=== PATIENT | male | born 1985 | race Caucasian/White ===

== ENCOUNTER 2023-10-07 14:05 | Emergency (ER) | payer SELFPAY ==
[2023-10-07] VITALS (8 sets, daily range): BP systolic 140–161; BP diastolic 90–99; PULSE 77–99; RESP 14–26; TEMP 36.6; O2SAT 95–100; BMI 33.9
--- NOTE | 2023-10-07 14:05 | ECG_ITS ---
APPROVED REPORT Exam: Resting ECG HR:86 bpm ECG Measurements Heart Rate 86 AXES VA 161 P 57 QRSd 97 QRS 14 QT 372 T 33 QTc 416 Conclusion SINUS RHYTHM NORMAL ECG UNCONFIRMED REPORT Electronically signed by : Denis Lopes MD 10/07/2023 19:56:26
--- NOTE | 2023-10-07 14:23 | PC.NURSE ---
Pt unsure of all his allergies but states he is not allergic to any known medications
--- NOTE | 2023-10-07 14:47 | XR_ITS ---
FINAL REPORT CLINICAL HISTORY: dyspnea FINDINGS: SINGLE-VIEW CHEST The heart size is normal. The mediastinum is normal. The lungs are clear. There is no pneumothorax. IMPRESSION: No acute cardiopulmonary process. Reviewed, Interpreted and Dictated by Sylvester Ndiaye III, MD Transcribed by Gala Ash Authenticated and [facility]
--- NOTE | 2023-10-07 14:50 | ED_ITS ---
Discharge Plan Disposition Patient Disposition: Home, Self-Care Clinical Impressions Clinical Impression: Chest pain, Acute anxiety, Hyperventilation, Panic disorder Discharge ED Provider: Lionel Maddox General Adult HPI <Christina Diaz MD - Last Filed: 10/07/23 14:55> General Chief complaint: Anxiety Stated complaint: chest pain soa Time Seen by Provider: 10/07/23 14:40 Mode of Arrival: Ambulatory Source of Information: Patient Limitations: No Limitations Description of Symptoms (Recalled from ER Triage Doc. by RN): Pt c/o sudden onset dizziness, diaphoresis, numbness in BUE, and feeling like a rock is in my chest. Pt was driving when symptoms began. Pt reports hx of anxiety and depress ion and was drinking heavily last night. Pt is from [place] and is in town due to recent divorce and trying to get my head right . Pt is stable on examine at this time. History of Present Illness HPI narrative: Is a 38-year-old male with a history of anxiety and panic attacks in the past presenting today with sudden chest pain that started just prior to arrival. Substernal nonradiating not associated with dyspnea or diaphoresis however he did have hyperventilation and numbness in his hands and his feet and perioral sensation area. He is on Vistaril at home but denies any improvement with these symptoms without medication. No history of sudden cardiac or heart disease in his family that he is aware of. He does not have any diagnosis of heart or lung problems other than asthma. Related Data Allergies Allergy/AdvReac Type Severity Reaction Status Date / Time shellfish derived Allergy Verified 10/07/23 14:23 [facility] <Christina Diaz MD - Last Filed: 10/07/23 14:55> [facility] Disclaimer: The information contained in this section may have been updated after the patient was seen, as this information can be updated by other users. Medical History (Updated 10/07/23 @ 14:49 by Christina Diaz MD) Anxiety Depression PTSD (post-traumatic stress disorder) Social History (Updated 10/07/23 @ 14:55 by Christina Diaz MD) Smoking Status: Current some day smoker alcohol intake: never current occupational status: other Travel in the last 8 weeks: None <Christina Diaz MD - Last Filed: 10/07/23 14:55> ROS Obtained: Yes All systems reviewed & no additional complaints except as documented Physical Exam <Christina Diaz MD - Last Filed: 10/07/23 14:55> General General appearance: anxious Respiratory Respiratory exam: Present normal lung sounds bilaterally and respiratory distress Cardiovascular Cardiovascular exam: Present regular rate and normal rhythm Abdominal Exam Abdominal exam: Present soft and distention Neurological Exam Neurological exam: Present alert and oriented X3 Medical Decision Making <Christina Diaz MD - Last Filed: 10/07/23 14:55> Alan Inquiry Pt receiving controlled substance: No Vital Signs: 10/07/23 14:06 10/07/23 14:30 10/07/23 15:00 Temperature 97.8 F Temperature Source Oral Pulse Rate 77 83 Pulse Rate [Right Radial] 92 H Respiratory Rate 26 H 18 20 Blood Pressure 161/98 H 149/94 H Blood Pressure [Right Arm] 146/99 H Blood Pressure Mean 109 116 Blood Pressure Mean [Right Arm] 114 Blood Pressure Source [Right Arm] Automatic Cuff Blood Pressure Position [Right Arm] Sitting 02 Sat by Pulse Oximetry 100 99 99 Oxygen Delivery Method Room Air 10/07/23 15:30 10/07/23 16:30 10/07/23 17:00 Temperature Temperature Source Pulse Rate 92 H 99 H 83 Pulse Rate [Right Radial] Respiratory Rate 20 18 Blood Pressure 140/91 H 145/98 H 152/90 H Blood Pressure [Right Arm] Blood Pressure Mean 109 115 110 Blood Pressure Mean [Right Arm] Blood Pressure Source [Right Arm] Blood Pressure Position [Right Arm] 02 Sat by Pulse Oximetry 98 95 95 Oxygen Delivery Method 10/07/23 17:30 Temperature Temperature Source Pulse Rate 90 Pulse Rate [Right Radial] Respiratory Rate Blood Pressure 156/93 H Blood Pressure [Right Arm] Blood Pressure Mean 107 Blood Pressure Mean [Right Arm] Blood Pressure Source [Right Arm] Blood Pressure Position [Right Arm] 02 Sat by Pulse Oximetry 98 Oxygen Delivery Method Lab Data Lab Results 10/07/23 14:10: WBC 18.7 H, RBC 5.65, Hgb 17.6, Hct 49.7, MCV 88.0, MCH 31.1, MCHC 35.4, RDW 12.9, Plt Count 308, MPV 8.7, Neut % (Auto) 70.5, Lymph % (Auto) 21.8, Schleicher % (Auto) 6.6, Eos % (Auto) 0.8, Baso % (Auto) 0.3, Neut # (Auto) 13.2 H, Lymph # (Auto) 4.1, Schleicher # (Auto) 1.2 H, Eos # (Auto) 0.2, Baso # (Auto) 0.1, Total Counted 100, Neutrophils % (Manual) 68, Lymphocytes % (Manual) 26, Monocytes % (Manual) 6, Platelet Estimate Normal, RBC Morphology Normal, Sodium 143, Potassium 3.4 L, Chloride 105, Carbon Dioxide 23, Anion Gap 18.4 H, BUN 11, Creatinine 0.80, Estimated Creat Clear 172, Estimated GFR 109, Est GFR ( Amer) 132, Glucose 97, Calcium 9.7, Total Bilirubin 0.7, AST 48, ALT 47, Alkaline Phosphatase 106, Troponin I < 0.01, Total Protein 8.6 H, Albumin 5.1 H, Globulin 3.5 H, Albumin/Globulin Ratio 1.5 10/07/23 17:05: Troponin I < 0.01 10/07/23 14:10 10/07/23 14:10 Orders (Tests/Meds): ED MEDICATIONS Generic Name Dose Route Start Last Admin Trade Name Freq PRN Reason Stop Dose Admin Sodium Chloride 10 ml 10/07/23 14:48 Sodium Chloride 0.9% 10ml Vial IV 11/06/23 14:47 NEEDED PRN to Dilute Lorazepam inj Discontinued Medications Generic Name Dose Route Start Last Admin Trade Name Freq PRN Reason Stop Dose Admin Lorazepam 1 mg 10/07/23 14:48 10/07/23 14:56 Lorazepam 2mg/Ml Vial IV 10/07/23 14:49 1 mg ONCE ONE Administration Potassium Chloride 40 meq 10/07/23 15:53 10/07/23 15:58 Potassium Chloride 20meq Tab PO 10/07/23 15:54 40 meq ONCE ONE Administration ORDERS Category Date Time Status CXR --portable [XR chest portable] Stat Exams 10/07/23 14:47 Completed CBC w/Auto Diff [Complete Blood Count Auto Diff] Stat Lab 10/07/23 14:10 Completed CMP [Comprehensive Metabolic Panel] Stat Lab 10/07/23 14:10 Completed Trop I [Troponin I] Stat Lab 10/07/23 14:10 Completed Troponin I Q3H Lab 10/07/23 17:05 Completed Troponin I Q3H Lab 10/07/23 21:00 Ordered ECG initial Besson Routine Y 10/07/23 14:05 Completed Medical Decision Narrative: Very anxious appearing 38-year-old male presents today with chest pain that started just prior to arrival. Will require serial troponins given the duration of symptoms. Unlikely this is acute coronary syndrome or myocardial injury this is most likely anxiety and panic attack. His carpopedal spasms perioral numb ness are highly specific for this condition. He has been given some Ativan to calm him down. EKG performed which I personally interpreted shows a ventricular rate of 86 no acute ischemic changes noted no conduction abnormalities noted there is a normal axis this is overall normal EKG in the emergency setting. ED observation order was placed around 2:50 PM care will be transitioned to Dr. Lionel Maddox pending serial troponins being negative. <Lionel Maddox MD - Last Filed: 10/07/23 18:07> Vital Signs: 10/07/23 14:06 10/07/23 14:30 10/07/23 15:00 Temperature 97.8 F Temperature Source Oral Pulse Rate 77 83 Pulse Rate [Right Radial] 92 H Respiratory Rate 26 H 18 20 Blood Pressure 161/98 H 149/94 H Blood Pressure [Right Arm] 146/99 H Blood Pressure Mean 109 116 Blood Pressure Mean [Right Arm] 114 Blood Pressure Source [Right Arm] Automatic Cuff Blood Pressure Position [Right Arm] Sitting 02 Sat by Pulse Oximetry 100 99 99 Oxygen Delivery Method Room Air 10/07/23 15:30 10/07/23 16:30 10/07/23 17:00 Temperature Temperature Source Pulse Rate 92 H 99 H 83 Pulse Rate [Right Radial] Respiratory Rate 20 18 Blood Pressure 140/91 H 145/98 H 152/90 H Blood Pressure [Right Arm] Blood Pressure Mean 109 115 110 Blood Pressure Mean [Right Arm] Blood Pressure Source [Right Arm] Blood Pressure Position [Right Arm] 02 Sat by Pulse Oximetry 98 95 95 Oxygen Delivery Method 10/07/23 17:30 Temperature Temperature Source Pulse Rate 90 Pulse Rate [Right Radial] Respiratory Rate Blood Pressure 156/93 H Blood Pressure [Right Arm] Blood Pressure Mean 107 Blood Pressure Mean [Right Arm] Blood Pressure Source [Right Arm] Blood Pressure Position [Right Arm] 02 Sat by Pulse Oximetry 98 Oxygen Delivery Method Lab Data Lab Results 10/07/23 14:10: WBC 18.7 H, RBC 5.65, Hgb 17.6, Hct 49.7, MCV 88.0, MCH 31.1, MCHC 35.4, RDW 12.9, Plt Count 308, MPV 8.7, Neut % (Auto) 70.5, Lymph % (Auto) 21.8, Schleicher % (Auto) 6.6, Eos % (Auto) 0.8, Baso % (Auto) 0.3, Neut # (Auto) 13.2 H, Lymph # (Auto) 4.1, Schleicher # (Auto) 1.2 H, Eos # (Auto) 0.2, Baso # (Auto) 0.1, Total Counted 100, Neutrophils % (Manual) 68, Lymphocytes % (Manual) 26, Monocytes % (Manual) 6, Platelet Estimate Normal, RBC Morphology Normal, Sodium 143, Potassium 3.4 L, Chloride 105, Carbon Dioxide 23, Anion Gap 18.4 H, BUN 11, Creatinine 0.80, Estimated Creat Clear 172, Estimated GFR 109, Est GFR ( Amer) 132, Glucose 97, Calcium 9.7, Total Bilirubin 0.7, AST 48, ALT 47, Alkaline Phosphatase 106, Troponin I < 0.01, Total Protein 8.6 H, Albumin 5.1 H, Globulin 3.5 H, Albumin/Globulin Ratio 1.5 10/07/23 17:05: Troponin I < 0.01 Orders (Tests/Meds): ED MEDICATIONS Generic Name Dose Route Start Last Admin Trade Name Freq PRN Reason Stop Dose Admin Sodium Chloride 10 ml 10/07/23 14:48 Sodium Chloride 0.9% 10ml Vial IV 11/06/23 14:47 NEEDED PRN to Dilute Lorazepam inj Discontinued Medications Generic Name Dose Route Start Last Admin Trade Name Freq PRN Reason Stop Dose Admin Lorazepam 1 mg 10/07/23 14:48 10/07/23 14:56 Lorazepam 2mg/Ml Vial IV 10/07/23 14:49 1 mg ONCE ONE Administration Potassium Chloride 40 meq 10/07/23 15:53 10/07/23 15:58 Potassium Chloride 20meq Tab PO 10/07/23 15:54 40 meq ONCE ONE Administration ORDERS Category Date Time Status CXR --portable [XR chest portable] Stat Exams 10/07/23 14:47 Completed CBC w/Auto Diff [Complete Blood Count Auto Diff] Stat Lab 10/07/23 14:10 Completed CMP [Comprehensive Metabolic Panel] Stat Lab 10/07/23 14:10 Completed Trop I [Troponin I] Stat Lab 10/07/23 14:10 Completed Troponin I Q3H Lab 10/07/23 17:05 Completed Troponin I Q3H Lab 10/07/23 21:00 Ordered ECG initial Besson Routine Y 10/07/23 14:05 Completed Medical Decision Narrative: Very anxious appearing 38-year-old male presents today with chest pain that started just prior to arrival. Will require serial troponins given the duration of symptoms. Unlikely this is acute coronary syndrome or myocardial injury this is most likely anxiety and panic attack. His carpopedal spasms perioral numbness are highly specific for this condition. He has been given some Ativan to calm him down. EKG performed which I personally interpreted shows a ventricular rate of 86 no acute ischemic changes noted no conduction abnormalities noted there is a normal axis this is overall normal EKG in the emergency setting. ED observation order was placed around 2:50 PM care will be transitioned to Dr. Lionel Maddox pending serial troponins being negative. Tan: I assume primary responsibility for this patient after signout from previous physician. Patient was placed in observation beginning at 2:50 PM in order to rule out evolving [place] with serial troponins and determine need for admission versus home-going. The patient was provided cardiac monitoring, serial troponins while awaiting results. Independent interpretation of results demonstrated delta troponin. On reevaluation, patient resting comfortably in bed. At this time, I feel patient is appropriate for discharge. Total observ ation time 3 hours. Patient was also given behavioral health information for following up with anxiety and PTSD. Critical Care <Christina Diaz MD - Last Filed: 10/07/23 14:55> Critical Care Time Critical Care Time: No
[2023-10-07 14:55] LABS: Basophils # 0.1 K/mm3 (0-0.2); Basophils % 0.3 % (0.1-2.0); Eosinophils # 0.2 K/mm3 (0.0-0.4); Eosinophils % 0.8 % (0.1-12.0); Hematocrit 49.7 % (42.0-52.0); Hemoglobin 17.6 g/dL (14.1-18.0); Lymphocytes # 4.1 K/mm3 (0.7-4.5); Lymphocytes % 21.8 % (10-50); Mean Corpuscular HGB Conc 35.4 g/dL (31.8-35.4); Mean Corpuscular Hemoglobin 31.1 pg (27.0-31.2); Mean Platelet Volume 8.7 fl (7.4-10.4); Monocytes # 1.2 K/mm3 (0.1-1.0); Monocytes % 6.6 % (1.7-9.3); Neutrophils # 13.2 K/mm3 (1.8-7.8); Neutrophils % 70.5 % (37.0-80.0); Platelet Count 308 K/mm3 (142-424); Red Blood Count 5.65 M/mm3 (4.60-6.20); Red Cell Distribution Width 12.9 % (11.5-17.5); White Blood Count 18.7 K/mm3 (4.8-10.8)
[2023-10-07] MEDS: LORazepam 2MG/ML VIAL 1 MG IV (14:56)
[2023-10-07 15:06] LABS: MANUAL DIFFERENTIAL MANUAL DIFFERENTIAL (MANUAL DIFF)
[2023-10-07 15:14] LABS: Lymphocytes % 26 % (10-50); Monocytes % 6 % (2-9); Neutrophils % 68 % (42-76); Platelet Estimate Normal; RBC Morphology Normal; Total Cells Counted 100
[2023-10-07 15:35] LABS: Alanine Aminotransferase 47 U/L (12-78); Albumin Level 5.1 g/dl (3.5-5.0); Albumin/Globulin Ratio 1.5 (1.1-1.8); Alkaline Phosphatase 106 U/L (38-126); Anion Gap 18.4 mEq/L (5-15); Aspartate Amino Transferase 48 U/L (17-59); Bilirubin,Total 0.7 mg/dl (0.2-1.3); Blood Urea Nitrogen 11 mg/dl (9-20); Calcium 9.7 mg/dl (8.4-10.2); Carbon Dioxide 23 mmol/L (22.0-30.0); Chloride 105 mmol/L (98-107); Creatinine Clearance Estimated 172 mL/min (50-200); Estimated Glomerular Filt Rate 109 ml/min (>60); GFR (African American) 132 ML/MIN (>60); Globulin 3.5 g/dL (1.3-3.2); Glucose 97 mg/dl (74-100); Potassium 3.4 mmoL/L (3.5-5.1); Sodium 143 mmol/L (136-145); Total Protein,Serum 8.6 g/dl (6.3-8.2)
[2023-10-07] MEDS: POTASSIUM CHLORIDE 20MEQ TAB 40 MEQ PO (15:58)
[2023-10-07 16:00] LABS: Troponin I < 0.01 ng/ml (0.00-0.034)
[2023-10-07 17:54] LABS: Troponin I < 0.01 ng/ml (0.00-0.034)
== END 2023-10-07 18:23 | disposition home or self-care (01) ==
PROVIDERS: Student in an Organized Health Care Education/Training Program; Emergency Provider Emergency Medicine
DX: R07.89 Other chest pain (principal); R06.4 Hyperventilation; F41.0 Panic disorder [episodic paroxysmal anxiety]; F17.210 Nicotine dependence, cigarettes, uncomplicated
CPT/HCPCS: 71045; 80053; 84484; 85007; 85025; 93005; 96374; 99284

== ENCOUNTER 2023-11-01 12:33 | Outpatient (CLI) | payer MEDICAID, SELFPAY ==
--- NOTE | 2023-11-01 12:39 | XR_ITS ---
FINAL REPORT CLINICAL HISTORY: cough, wheezing, hemoptysis COMPARISON: 10/07/2023 FINDINGS: Two views of the chest were obtained. The heart size and pulmonary vascularity are within normal limits. The mediastinum is normal. Bronchial wall thickening consistent with bronchitis. There is no pneumothorax. The bony thorax is intact. IMPRESSION: Bronchitis. Reviewed, Interpreted and Dictated by Sylvester Ndiaye III, MD Transcribed by Rula Santamaria Authenticated and [facility]
[2023-11-01 13:22] LABS: Basophils # 0.1 K/mm3 (0-0.2); Basophils % 0.9 % (0.1-2.0); Eosinophils # 0.3 K/mm3 (0.0-0.4); Eosinophils % 2.7 % (0.1-12.0); Hematocrit 47.9 % (42.0-52.0); Hemoglobin 16.1 g/dL (14.1-18.0); Lymphocytes # 2.3 K/mm3 (0.7-4.5); Lymphocytes % 22.6 % (10-50); Mean Corpuscular HGB Conc 33.5 g/dL (31.8-35.4); Mean Corpuscular Hemoglobin 31.3 pg (27.0-31.2); Mean Corpuscular Volume 93.5 fl (80-94); Mean Platelet Volume 8.5 fl (7.4-10.4); Monocytes # 0.5 K/mm3 (0.1-1.0); Monocytes % 4.7 % (1.7-9.3); Neutrophils # 7.1 K/mm3 (1.8-7.8); Neutrophils % 69.2 % (37.0-80.0); Platelet Count 253 K/mm3 (142-424); Red Blood Count 5.12 M/mm3 (4.60-6.20); Red Cell Distribution Width 13.1 % (11.5-17.5); White Blood Count 10.3 K/mm3 (4.8-10.8)
[2023-11-01 13:36] LABS: D-Dimer 0.26 ug/mL (0.0-0.5)
[2023-11-01 13:45] LABS: Alanine Aminotransferase 32 U/L (12-78); Albumin Level 4.8 g/dl (3.5-5.0); Albumin/Globulin Ratio 1.8 (1.1-1.8); Alkaline Phosphatase 71 U/L (38-126); Anion Gap 13.1 mEq/L (5-15); Aspartate Amino Transferase 40 U/L (17-59); Bilirubin,Total 0.6 mg/dl (0.2-1.3); Blood Urea Nitrogen 12 mg/dl (9-20); Calcium 9.7 mg/dl (8.4-10.2); Carbon Dioxide 28 mmol/L (22.0-30.0); Chloride 102 mmol/L (98-107); Chol/HDL Ratio 5.5 (1-3.5); Cholesterol 203 mg/dl (140-200); Estimated Glomerular Filt Rate 109 ml/min (>60); GFR (African American) 132 ML/MIN (>60); Globulin 2.6 g/dL (1.3-3.2); Glucose 98 mg/dl (74-100); HDL Cholesterol 37 mg/dl (40-60); Potassium 4.1 mmoL/L (3.5-5.1); Sodium 139 mmol/L (136-145); Total Protein,Serum 7.4 g/dl (6.3-8.2); Triglycerides 119 mg/dl (30-150); VLDL Cholesterol 24 mg/dL (0-40)
[2023-11-01 13:56] LABS: Direct LDL Cholesterol 118.03 mg/dL (100-129)
[2023-11-01 13:59] LABS: Hemoglobin A1C 5.3 % (4.0-6.0)
[2023-11-01 14:04] LABS: Free T4 (Free Thyroxine) 0.96 ng/dl (0.78-2.19)
[2023-11-01 14:15] LABS: Thyroid Stimulating Hormone 2.95 uIU/mL (0.465-4.68)
[2023-11-02 13:10] LABS: Deamidated Gliadin Abs, IgA 22 units (0-19); Deamidated Gliadin Abs, IgG 3 units (0-19); Tissue Transglutaminase IgA Ab <2 U/mL (0-3); Tissue Transglutaminase IgG Ab 3 U/mL (0-5)
[2023-11-02 14:13] LABS: Anti-Centromere B Antibodies <0.2 AI (0.0-0.9); Anti-DNA (DS) Ab Qn 3 IU/mL (0-9); Anti-Jo-1 <0.2 AI (0.0-0.9); Anti-Smith Antibody <0.2 AI (0.0-0.9); Antichromatin Antibodies <0.2 AI (0.0-0.9); Antiscleroderma-70 Antibodies <0.2 AI (0.0-0.9); RNP Antibodies <0.2 AI (0.0-0.9); Sjogren's Anti-SS-A <0.2 AI (0.0-0.9); Sjogren's Anti-SS-B <0.2 AI (0.0-0.9)
[2023-11-02 16:14] LABS: Endomysial IgA Antibody Negative (Negative)
[2023-11-04 08:59] LABS: Reticulin IgA Antibody Negative titer (Neg:<1:2.5)
== END 2023-11-01 23:59 ==
LOC: LAB 12:34
PROVIDERS: PCP Student in an Organized Health Care Education/Training Program; Visit Provider Student in an Organized Health Care Education/Training Program
DX: J02.9 Acute pharyngitis, unspecified (principal); R05.9 Cough, unspecified; R04.2 Hemoptysis; R06.2 Wheezing; M25.50 Pain in unspecified joint; R53.83 Other fatigue; F41.9 Anxiety disorder, unspecified; K90.41 Non-celiac gluten sensitivity; Z20.828 Contact with and (suspected) exposure to other viral communicable diseases; Z79.899 Other long term (current) drug therapy
CPT/HCPCS: 36415; 71046; 80053; 80061; 82306; 83036; 83516; 84439; 84443; 84550; 85025; 85378; 86225; 86235; 86255; 86256; 87070